=== PATIENT | male | born 1980 | race Caucasian/White ===

== ENCOUNTER 2017-05-21 07:34 | Emergency (ER) | payer OTHER ==
[~2017-05-21] VITALS: Ht 162.6 cm; Wt 122.2 kg
[2017-05-21 07:40] VITALS: BP 128/87
== END 2017-05-21 08:15 | disposition home or self-care (01) ==
LOC: ED 08:00
DX: H60.91 Unspecified otitis externa, right ear (principal); H61.22 Impacted cerumen, left ear
CPT/HCPCS: 99283